=== PATIENT | female | born 1990 | race Caucasian/White ===

== ENCOUNTER → 2018-12-23 23:50 | Observation (INO) ==
[2018-12-23 21:49] LABS: Basophils % 0.2 %; Eosinophils % 0.4 %; Hematocrit 31.2 % (35.3-44.9); Hemoglobin 10.4 g/dL (11.5-15.4); Lymphocytes # 1.8 K/mcL (0.6-4.6); Mean Corpuscular HGB Conc 33.3 g/dL (31.6-35.5); Mean Corpuscular Hemoglobin 28.3 pg (28.0-33.3); Mean Platelet Volume 11.4 fL (9.4-12.4); Monocytes # 0.6 K/mcL (0.0-1.3); Monocytes % 6.1 %; Neutrophils # 7.1 K/mcL (1.6-8.9); Platelet Count 238 K/mcL (140-400); Red Blood Count 3.67 M/mcL (3.82-4.97); Red Cell Distribution Width 14.5 % (11.5-14.5); Segmented Neutrophils % 73.3 %; White Blood Count 9.7 K/mcL (4.3-11.1)
[2018-12-23 21:54] LABS: Bilirubin,Urine Negative (Negative); Blood,Urine Negative (Negative); Clarity,Urine Cloudy (Clear); Color,Urine Dark Yellow (Yellow); Glucose,Urine (UA) Normal (Normal); Ketones,Urine Trace mg/dL (Negative); Leukocyte Esterase,Urine Negative (Negative); Nitrite,Urine Negative (Negative); Protein,Urine 30 mg/dL (Neg-Trace); Specific Gravity,Urine > 1.030 (1.010-1.025); Urobilinogen,Urine Normal (Normal)
[2018-12-23 21:55] LABS: Bacteria,Urine Many per hpf (None-Few); Squamous Epithelial Cell,Urine Many per lpf (None-Few); WBC,Urine 50-100 per hpf (0-3)
[2018-12-23 21:56] LABS: Protein/Creatinine Ratio,Urine 0.19 mg/mg (0.00-0.20)
[2018-12-23 21:57] LABS: Amphetamine Screen,Urine Negative ng/mL (Cutoff=1000); Barbiturate Screen,Urine Negative ng/mL (Cutoff=200); Benzodiazepines Screen,Urine Negative ng/mL (Cutoff=200); Cannabinoid Screen,Urine Negative ng/mL (Cutoff = 50); Cocaine Screen,Urine Negative ng/mL (Cutoff= 300); Opiate Screen,Urine Negative ng/mL (Cutoff=300); Phencyclidine Screen,Urine Negative ng/mL (Cutoff=25)
[2018-12-23 22:06] LABS: Alanine Aminotransferase 8 Units/L (7-52); Aspartate Amino Transferase 13 Units/L (13-39); BUN/Creatinine Ratio 18 (6-26); Blood Urea Nitrogen 13 mg/dL (6-20); Lactate Dehydrogenase 124 Units/L (140-271); Uric Acid 4.4 mg/dL (2.3-7.6); eGFR For African Americans > 60 (> 60); eGFR For Non-African Americans > 60 (> 60)
[2018-12-23 22:20] LABS: Calcium Oxalate Crystals,Urine Present; RBC,Urine 0-3 per hpf (0-3)
--- NOTE | 2018-12-23 23:23 | OB/GYN Progress Note ---
Date of Encounter: 12/23/18 Time of Encounter: 23:19 - Assessment and Plan (1) 38 weeks gestation of Current Visit: Yes Status: Acute (2) Elevated blood pressure affecting in third trimester, antepartum Current Visit: Yes Status: Acute Patient with 1 only elevated blood pressure initial pressure on admission, all other pressures normotensive. PIH labs negative. Discharged home with labor and PIH precautions. Patient verbalizes understanding and in agreement with plan Subjective - Subjective Interval history: 36+ weeks gestation presents to triage for PIH eval. Patient was seen by Dr. Byers in the office today, and had elevated blood pressure and positive protein in urine. Patient ports good movement, denies contractions vaginal bleeding or leaking of fluid. Denies headache or visual changes Antepartum ROS: movement normal, no loss of fluid, no vaginal bleeding, no contractions Objective - Vital Signs Vital Signs: Intake and Output 12/23/18 12/23/18 12/23/18 07:59 15:59 23:59 Other: Weight 124.466 kg Patient Weight 12/23/18 23:59 Weight 124.466 kg - Exam FHR: auscultation normal FHR comments: Baseline 125 Abdomen: Present: soft, gravid - Labs Labs: Abnormal lab results RBC 3.67 M/mcL (3.82-4.97) L 12/23/18 21:20 Hgb 10.4 g/dL (11.5-15.4) L 12/23/18 21:20 Hct 31.2 % (35.3-44.9) L 12/23/18 21:20 Lactate Dehydrogenase 124 Units/L (140-271) L 12/23/18 21:20 Urine Clarity Cloudy (Clear) A 12/23/18 21:20 Ur Specific [place] > 1.030 (1.010-1.025) H 12/23/18 21:20 Urine Protein 30 mg/dL (Neg-Trace) H 12/23/18 21:20 Urine Ketones Trace mg/dL (Negative) H 12/23/18 21:20 Urine Microscopic WBC 50-100 per hpf (0-3) H 12/23/18 21:20 Ur Squamous Epith Cells Many per lpf (None-Few) H 12/23/18 21:20 Urine Bacteria Many per hpf (None-Few) H 12/23/18 21:20 Ur Culture Indicated? YES (NO) A 12/23/18 21:20 Urine Total Protein 42 mg/dL (1-14) H 12/23/18 21:20
== END | disposition home or self-care (01) ==
LOC: 1NENULAB
PROVIDERS: ADMIT Advanced Practice Midwife; ATTEND Advanced Practice Midwife

== ENCOUNTER 2018-12-28 06:00 | Inpatient (IN) ==
[2018-12-31] MEDS ORDERED: Naloxone 0.4 MG/ML INJ IVP PRN ×2 (06:34→07:57)
[2018-12-31] MEDS ORDERED: Famotidine 20 MG/2 ML VIAL IVP PRN (06:34)
[2018-12-31] MEDS ORDERED: *HR* Nalbuphine 10 MG/ML AMPUL IVP PRN (06:34)
[2018-12-31] MEDS ORDERED: Metoclopramide 10 MG/2 ML VIAL IVP PRN (06:34)
[2018-12-31] MEDS ORDERED: Ringers Solution, Lactated 1,000 ML IVC SCH (06:45)
[2018-12-31 06:50] LABS: Basophils % 0.2 %; Eosinophils # 0.1 K/mcL (0.0-0.6); Hematocrit 32.1 % (35.3-44.9); Hemoglobin 10.5 g/dL (11.5-15.4); Immature Granulocytes % 1.3 % (0-4); Lymphocytes # 2.1 K/mcL (0.6-4.6); Mean Corpuscular HGB Conc 32.7 g/dL (31.6-35.5); Mean Corpuscular Hemoglobin 27.9 pg (28.0-33.3); Mean Corpuscular Volume 85.1 fL (83.0-100.0); Mean Platelet Volume 11.3 fL (9.4-12.4); Monocytes # 0.6 K/mcL (0.0-1.3); Monocytes % 5.4 %; Neutrophils # 7.2 K/mcL (1.6-8.9); Platelet Count 256 K/mcL (140-400); Red Blood Count 3.77 M/mcL (3.82-4.97); Red Cell Distribution Width 14.8 % (11.5-14.5); Segmented Neutrophils % 71.1 %; White Blood Count 10.2 K/mcL (4.3-11.1)
[2018-12-31 07:08] LABS: Amphetamine Screen,Urine Negative ng/mL (Cutoff=1000); Barbiturate Screen,Urine Negative ng/mL (Cutoff=200)
[2018-12-31 07:09] LABS: Benzodiazepines Screen,Urine Negative ng/mL (Cutoff=300); Cannabinoid Screen,Urine Negative ng/mL (Cutoff = 50); Cocaine Screen,Urine Negative ng/mL (Cutoff= 300); Opiate Screen,Urine Negative ng/mL (Cutoff=300); Phencyclidine Screen,Urine Negative ng/mL (Cutoff=25)
[2018-12-31] MEDS: miSOPROStol 25 MCG TABLET PO SCH ×2 (07:23→12:03)
[2018-12-31] MEDS ORDERED: Ondansetron 4 MG/2 ML VIAL IVP PRN (07:57)
[2018-12-31] MEDS ORDERED: EPHEDrine 50 MG/ML VIAL IVP PRN (07:57)
[2018-12-31] MEDS ORDERED: *HR* FentaNYL (PF) 100 MCG/2 ML VIAL EP ONE (07:57)
[2018-12-31] MEDS ORDERED: Ropivacaine/PF 0.2% 20 ML VIAL EP ONE (07:57)
--- NOTE | 2018-12-31 08:05 | Anesthesia Evaluation PreOp ---
Date of Encounter: 12/31/18 - Past History Alcohol Use: none Drug use: none Medications and Allergies One Tablet 12/23/18 [History] Allergy/AdvReac Type Severity Reaction Status Date / Time No Known Allergies Allergy Verified 12/31/18 06:44 Anesthesia Results - Labs 12/31/18 06:36
--- NOTE | 2018-12-31 08:27 | Anesthesia Evaluation PreOp ---
Date of Encounter: 12/31/18 Time of Encounter: 08:00 - Past History Planned Operation: DAVID Cardiac History: Denies any Significant Hx Pulmonary History: Denies Any Significant HX MAT[employer]X [employer]RIER TENDER History: Denies Any Significant HX Other Medical History: Denies Any Significant HX Anesthesia History: No Prior Anesthetic Complications, Past Anesthesia (Bilateral ankle surgery) : Yes Alcohol Use: none Drug use: none Medications and Allergies One Tablet 12/23/18 [History] Allergy/AdvReac Type Severity Reaction Status Date / Time No Known Allergies Allergy Verified 12/31/18 06:44 - Meds/Allergy Pre-op Review Medications Reviewed: Yes Allergies Reviewed: Yes Beta Blockers on Current Med List: No Anesthesia Results - Labs 12/31/18 06:36 Anesthesia Exam BP 137/68 P 79 R 16 T 97.5 FHT 120s Height: 5'4" Weight: 124.3kg NPO (# of Hours): 6 Pain Scale: 2 Pain Scale Used: Numeric (1 - 10) - HEENT Pupil (Motor): Pupils equal Mallampati: II Teeth: Normal Oral Opening: Greater than 3 - MATRIX DRIER TENDER LOC: Oriented [employer]X [employer] TENDER Motor: Normal RUE, Normal LUE, Normal RLE, Normal LLE, Normal Face [employer]X DRIER TENDER Sensory: Normal: RUE, LUE, RLE, LLE, Face - Cardiac Rhythm: Regular Murmur: None JVD: No Carotid Bruit: No - Pulmonary Breath Sounds: bilateral Clear Respiratory Effort: Symmetrical Anesthesia Assess/Plan ASA Score: 2 Level of consciousness: Cooperative, Oriented, Tranquil Anesthetic Plan: Epidural Autologous Blood: No Monitoring Plan: Standard Monitors Recovery Plan: Other
[2018-12-31 09:57] LABS: Alanine Aminotransferase 9 Units/L (7-52); Aspartate Amino Transferase 12 Units/L (13-39); BUN/Creatinine Ratio 15 (6-26); Blood Urea Nitrogen 8 mg/dL (6-20); Lactate Dehydrogenase 117 Units/L (140-271); eGFR For African Americans > 60 (> 60); eGFR For Non-African Americans > 60 (> 60)
[2018-12-31 10:17] LABS: Protein/Creatinine Ratio,Urine 0.18 mg/mg (0.00-0.20)
--- NOTE | 2018-12-31 13:19 | OB/GYN History & Physical ---
Date of Encounter: 12/31/18 Time of Encounter: 13:17 Assessment and Plan (1) 39 weeks gestation of Current visit: Yes Status: Acute Will admit to labor and deliver and begin 2 stage induction with Cytotec followed by intracervical li if needed. 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 She has no preeclampsia sx's, +GFM, no vb or lof History of Present Illness Chief complaint: Here for Induction at 39 weeks gestation, historof elevated blood pressures HPI: Ms. Humphries is a 28 year old female 1 para 0 female at 39 weeks 2 days gestation presents to labor and delivery for induction of labor. This has been complicated by recent elevations in blood pressure with multiple admissions to labor and delivery for rule out preeclampsia. Upon arrival she reports irregular contractions no bleeding or leakage fluid Past Med Surg Social Fam HX - Past Medical History Source: patient, old records reviewed Medical history: no medical history Psychiatric history: no psych history - Past Surgical History Surgical History: other Additional surgical history: surgery on broken bone, both ankles, wrist. - Social History Smoking Status: Never smoker Alcohol use: none Drug use: none - Family History Mother Living Status: Still Living Hx Family Cardiac Disorders: No Hx Family Respiratory Disorders: No Hx Family Cancer: No Hx Family GI Disorders: No Hx Family Genitourinary Disorders: No Hx Family Endocrine Disorder: No Hx Family Musculoskeletal Disorders: No Hx Family Neuromuscular Disorders: No Hx Family Neurologic Disorders: No Hx Family HEENT Disorders: No Hx Family Autoimmune Disorders: No Hx Family Reproductive Disorders: No Hx Family Psychosocial Disorders: No Hx Family Medical Disorders: No Obstetrical History - Pregnancies : 1 Medications and Allergies One Tablet 12/23/18 [History] Allergy/AdvReac Type Severity Reaction Status Date / Time No Known Allergies Allergy Verified 12/31/18 06:44 Exam - Constitutional Constitutional: well developed - HEENT HEENT: EOMI, PERRL - Neck Neck exam: full ROM - Lungs Respiratory exam: CTAB - Cardiovascular Cardiovascular exam: RRR - Abdomen Abdomen: Present: gravid - Extremities Extremities exam: full ROM Deep Tendon Reflex Grade: 2+ Normal - Cervix Dilation: 1 Effacement: 60 Station: -2 Results Result Diagrams: 12/31/18 06:36 12/31/18 09:17 Abnormal lab results RBC 3.77 M/mcL (3.82-4.97) L 12/31/18 06:36 Hgb 10.5 g/dL (11.5-15.4) L 12/31/18 06:36 Hct 32.1 % (35.3-44.9) L 12/31/18 06:36 MCH 27.9 pg (28.0-33.3) L 12/31/18 06:36 RDW 14.8 % (11.5-14.5) H 12/31/18 06:36 Creatinine 0.52 mg/dL (0.60-1.20) L 12/31/18 09:17 AST 12 Units/L (13-39) L 12/31/18 09:17 Lactate Dehydrogenase 117 Units/L (140-271) L 12/31/18 09:17 Urine Total Protein 23 mg/dL (1-14) H 12/31/18 06:30 All other labs normal. - VTE Reasons for not Prescribing Prophylaxis: Treatment not Indicated - Low risk for VTE
--- NOTE | 2018-12-31 13:32 | Event Note ---
Date of Encounter: 12/31/18 Time of Encounter: 13:26 Pt is getting more uncomfortable there is still just cramping. She denies bleeding or leakage of fluid. Attempt was made at Ghosh catheter placement intracervically without success. Attempted with direct digital placement as well as direct visualization without success. Patient just received her Cytotec second dose an hour ago with continued to Cytotec this point. Patient is no other questions. Nonstress test is reactive. Her blood pressures are good.
--- NOTE | 2018-12-31 17:00 | OB Labor Progress Note ---
Date of Encounter: 12/31/18 Time of Encounter: 16:58 Labor Progress Note - Subjective Subjective: Pt reports contractions are getting a little more uncomfortable. - Cervix Cervix: ft-1cm - Heart Tones Heart Tones: Category I - [place]: Q 3 minutes - Interventions Interventions: Ghosh catheter placed through cervix using sterile technique. Balloon inflated with 40ml sterile water. Pt tolerated well. - Plan Plan: Continue to monitor. Consider pitocin augmentation at this time. Epidural when requested. Anticipate .
[2018-12-31] MEDS ORDERED: Oxytocin 20 units/ LR 1000 mL 20 UNIT/1,000 ML BAG IVC SCH (18:15)
[2018-12-31] MEDS ORDERED: *HR* FentaNYL (PF) 100 MCG/2 ML VIAL ONE (18:41)
--- NOTE | 2018-12-31 22:35 | OB Labor Progress Note ---
Date of Encounter: 12/31/18 Time of Encounter: 22:33 Labor Progress Note - Subjective Subjective: UC's getting stronger - Cervix Cervix: /-2 - Heart Tones Heart Tones: RNST - [place]: UC's q 4-5 min - Interventions Interventions: AROM clear - Plan Plan: IUPC placed, expect .
[2018-12-31] MEDS: Epidural Premix (fent/bupiv) 110 ML EP SCH (23:12)
--- NOTE | 2018-12-31 23:21 | Anesthesia Procedures ---
Date of Encounter: 12/31/18 Time of Encounter: 22:45 Procedures: Anesthesia - Epidural/Spinal Patient ID/Chart reviewed: Yes Patient examined: Yes OB Eval: Gestational age: 39 OB Eval: : 1 OB Eval: Hx Para: 0 OB Eval: Dilated at (cm): 5 OB Eval: Contractions: Non-stressed pattern Consent Obtained: Yes Supplemental Oxygen: None/Room Air Site Prep: Aseptic Technique, Sterile prep and drape, Povidone-Iodine 1% Patient position: upright Local Anesthetic: Lidocaine 1% Amount of Local Anesthetic used: 3 Touhy Needle Gauge: 18 Touhy Needle Depth (cm): 7 Catheter Depth at Skin (cm): 14 Test Dose (1.5% Lido + Epi): Volume given (mls): 3 Test Dose Result: Negative Loading Dose: Fentanyl (mcg): 100 Loading Dose: Other: Ropivicaine 0.2% 5ml, 3ml Normal saline Loading Dose Administered: Thru Catheter Infusion Med: 0.125% Bupivacaine w/ 2 mcg/ml Fentanyl Infusion Rate (mls/hr): [address]: Tegaderm, Tape Interspace Used: L3-L4 Loss of Resistance (SUSI): Yes Blood: No CSF: No Paresthesia: No Procedure: DAVID placed 1st pass in upright position. SUSI achieved with Normal Saline. Catheter threaded with ease to 14cm at skin. Test dose negative. Pt stated comfort following administration of bolus. VSS throughout. Vitals + FHT's: 2245 BP 125/85 P 102 R 18 2310 BP 128/72 P 112 R 16
--- NOTE | 2019-01-01 04:07 | OB Labor Progress Note ---
Date of Encounter: 01/01/19 Time of Encounter: 04:04 Labor Progress Note - Subjective Subjective: Doing well, comfortable with epidural - Cervix Cervix: 6-7/95/-1 - Heart Tones Heart Tones: RNST, occ late decls noted, excellent variablility - Plan Plan: Watch FHT's closely, expect
[2019-01-01] MEDS ORDERED: Ropivacaine/PF 0.2% 20 ML VIAL ONE (04:57)
--- NOTE | 2019-01-01 05:26 | Anesthesia Progress Note ---
Date of Encounter: 01/01/19 Time of Encounter: 05:00 Anesthesia Note - Note Note: 01/01/19 05:25 Called to patient bedside with complaints of breakthrough labor pain. Ropivicaine 0.2% 10ml bolus administered. VSS.
[2019-01-01] MEDS: Epidural Premix (fent/bupiv) 110 ML EP SCH (05:52)
[2019-01-01] MEDS ORDERED: Acetaminophen 325 MG TABLET PO PRN (12:04)
[2019-01-01] MEDS ORDERED: Lidocaine/EPI 1:200k 1% PF 10 ML VIAL ONE (17:29)
--- NOTE | 2019-01-01 18:01 | OB Labor Progress Note ---
Date of Encounter: 01/01/19 Time of Encounter: 17:53 Labor Progress Note - Subjective Subjective: Patient has been complete for 11 hours has been pushing on and off the entire time. We attempted position changes to also try and help bring the baby down. Patient has become completely exhausted and her pushing effort was ineffective. We did offer her a attempted vacuum to see if we could help pull the baby down. We did give consent for this I attempted twice with the vacuum the first time popped off with the mighty Vac I converted over to the [place] applied one time pulled one time there was no descent of the head I released it and took it off. I informed the patient I was not comfortable proceeding on attempting to pull the baby out and recommended we proceed on with section. Patient was okay with it at this time. - Cervix Cervix: Complete/100%/+2 caput noted - Heart Tones Heart Tones: heart tones 140s reactive - [place]: Contractions every 2 minutes - Interventions Interventions: Pitocin has been turned off consent for has been obtained anesthesia is notified we will proceed on with a primary low transverse section
[2019-01-01] MEDS ORDERED: Chloroprocaine/PF 20 ML VIAL INFILT ONE ×2 (18:03→19:10)
[2019-01-01] MEDS ORDERED: *HR* Oxytocin 10 UNIT/ML VIAL IM ONE (18:04)
[2019-01-01] MEDS ORDERED: CeFAZolin Premix DUPLEX 2,000 MG/50 ML BAG IVPB ONE (18:05)
--- NOTE | 2019-01-01 18:05 | OB/GYN Procedure Note ---
Section - Date of procedure: 01/01/19 Preop diagnosis: other (Intrauterine at 39-3/7 weeks, arrest of descent, cephalopelvic disproportion) Post-op diagnosis: same (with POP) Procedure: primary low transverse Surgeon: Yassine Fong Quantitated Blood Loss: 1,500 Was there an assistant to the director present: Yes Nail Specialist: Wilder Hercules ([id number]) Addiction Social Worker: Josh Mcadams Anesthesia Type: Epidural section complications: none, other (intraoperative uterine atony with laceration into cervix) Disposition: L&D Recovery Room Specimens: Placenta - Infant (s) Infant A Infant Delivery Date: 01/01/19 Delivery Time: 18:41 Presentation: vertex Position: LOP Route of delivery: other ( section) Gender: Female Viability: Viable Pounds: 7 Ounces: 13 Gram Weight: 3.53 kg at 1 minute: 8 at 5 minutes: 9 Shoulder Dystocia: not encountered Specimens collected: cord blood Placenta: spontaneous Cord: 3 umbilical vessels - Narrative Narrative: Patient is a 20-year-old 1 para 0 at 39-3/7 weeks who presented to labor and delivery for an induction labor second term with history of el evated blood pressures. Patient was put in on the sixth were her induction was initiated. Patient progressed slowly but appropriately. This morning at approximately 7 AM the patient was complete patient's was allowed to push but was not making any progress they felt because of the epidural and allowed to labor down patient continued to have no sensation the entire day after approximately 11 hours of being complete patient had no maternal effort with her patient was completely exhausted. We did attempt a vacuum extraction we applied a vacuum twice with 1 pop off we had no descent of the head and this was abandoned and section was called. Procedure: Patient was taken the operating room where epidural anesthesia was found be adequate. She was placed in the dorsal supine position with leftward tilt and prepped and draped in usual fashion. Timeout was obtained. A Pfannenstiel incision was then made carried down through the underlying tissue until the fascia was identified. The fascia was nicked in the midline extended laterally with Severino scissors. The superior and inferior edges of the fascia were grasped and dissected off the rectus muscles and rectus muscles were in the midline. Parietal peritoneum was then identified tented up and entered sharply. This was extended superiorly and inferiorly with Metzenbaum scissors. The bladder blade was inserted noted this time the uterus seemed to be displaced to the left where we had to place the bladder blade more on the patient's right thigh. The vesicouterine peritoneum was then tented up and entered sharply extended laterally and bladder flap was created digitally. The lower uterine segment was then incised and the scalpel and the incision was extended laterally with bandage scissors. It was Noted immediately incision was at the level of the 's shoulders. I had difficulty getting the head disengaged I was finally able to disengage the head identifying the in occiput posterior presentation the infant was then brought up through the incision delivered cord was clamped and cut infant was handed off to waiting pediatric team. Cord blood was collected. Placenta was delivered spontaneously. Uterus was exterior since this time was noted immediately patient had a extension on the right side down into the cervix. It was noted that the extension extended all the way to the end of the cervix which what appeared to be in the vaginal vault. Using 0 Vicryl were able to then reapproximate that cervical laceration and closed in a running locking stitch until we were at the level of the original penicillin incision. This incision was then closed using a 0 Vicryl in a running locking stitch by 2 layer closure. We did have good hemostasis I did close the peritoneum with a 2-0 Vicryl closing the underlying incision. The uterus was returned to the abdomen and gutters were cleaned of all clots and debris no active bleeding was noted. We did have to close the parietal peritoneum with a 2-0 Vicryl in a running stitch due to the fact patient omentum Protruding through the incision once this was closed we then closed the fascia with a #1 stratafix in a running stitch and then the subcutaneous tissue was closed using 0 chromic in a running stitch and the skin was closed using a 4-0 Vicryl in a subcuticular manner. All needles and sponge counts were correct 3 she did receive preoperative antibiotics. Patient will be continued on Keflex and Zithromax for 5 days daily.
[2019-01-01] MEDS ORDERED: Ondansetron 4 MG/2 ML VIAL ONE (18:30)
[2019-01-01] MEDS ORDERED: Ringers Solution, Lactated 1,000 ML ONE ×2 (18:32→21:56)
[2019-01-01] MEDS ORDERED: *HR* Morphine Sulfate/PF 10 MG/10 ML AMPUL ONE (18:33)
[2019-01-01] MEDS ORDERED: Azithromycin 500 MG in 0.9 % Sodium Chloride 250 ML IVPB ONE ×2 (18:33→19:00)
[2019-01-01] MEDS ORDERED: Acetaminophen IV 1,000 MG/100 ML INFUS..BTL IVPB ONE (19:59)
[2019-01-01] MEDS ORDERED: *HR* HYDROmorphone (PF) 1 MG/ML SYRINGE IVP PRN (19:59)
[2019-01-01] MEDS ORDERED: *HR* OxyCODONE/APAP 10/325 TABLET PO PRN (20:52)
[2019-01-01] MEDS ORDERED: Sennosides 8.6 MG TABLET PO PRN (20:52)
[2019-01-01] MEDS ORDERED: Ondansetron 4 MG/2 ML VIAL IVP PRN (20:52)
[2019-01-01] MEDS ORDERED: Rho Immune Globulin 1,500 UNIT SYRINGE IM ONE (20:52)
[2019-01-01] MEDS ORDERED: Metoclopramide 10 MG/2 ML VIAL IVP PRN (20:52)
[2019-01-01] MEDS ORDERED: 0.9 % Sodium Chloride 1,000 ML IVC SCH (20:52)
[2019-01-01] MEDS ORDERED: Oxytocin 20 units/ LR 1000 mL 20 UNIT/1,000 ML BAG IVC SCH (20:52)
[2019-01-01] MEDS ORDERED: Simethicone 80 MG TAB.CHEW PO PRN (20:52)
[2019-01-01 21:43] LABS: Hematocrit 29.2 % (35.3-44.9); Hemoglobin 9.5 g/dL (11.5-15.4); Mean Corpuscular HGB Conc 32.5 g/dL (31.6-35.5); Mean Corpuscular Hemoglobin 28.1 pg (28.0-33.3); Mean Corpuscular Volume 86.4 fL (83.0-100.0); Mean Platelet Volume 11.7 fL (9.4-12.4); Platelet Count 207 K/mcL (140-400); Red Blood Count 3.38 M/mcL (3.82-4.97); Red Cell Distribution Width 15.2 % (11.5-14.5)
[2019-01-01 21:44] LABS: White Blood Count 21.1 K/mcL (4.3-11.1)
[2019-01-01] MEDS ORDERED: Oxytocin 20 units/ LR 1000 mL 20 UNIT/1,000 ML BAG IVC ONE (21:56)
--- NOTE | 2019-01-01 21:58 | Anesthesia Evaluation Post Op ---
Date of Encounter: 01/01/19 Time of Encounter: 21:58 - Lungs Lungs: Clear Ascult./Percussion - Airway Airway: Non-obstructed - Cardiovascular Regular Rate - Mental Status Mental Status: Alert & Oriented, Answers Appropriately - Pain Pain Scale: 4 - Nausea Vomiting Nausea Vomiting: Not Present - Hydration Hydration: Ice chips, Ghosh catheter - Discharge PostOp Status: Transfer Patient to floor
[2019-01-01] MEDS: cephALEXin 500 MG CAPSULE PO SCH (22:24)
[2019-01-01] MEDS: *HR* OxyCODONE/APAP 5/325 TABLET PO PRN (22:24)
[2019-01-01] MEDS ORDERED: *HR* Nalbuphine 10 MG/ML AMPUL IV PRN (23:20)
[2019-01-02] MEDS: *HR* OxyCODONE/APAP 5/325 TABLET PO PRN ×4 (05:57→23:50)
[2019-01-02] MEDS: Ibuprofen 600 MG TABLET PO PRN ×2 (05:58→20:34)
[2019-01-02 08:01] LABS: Basophils % 0.2 %; Eosinophils # 0.1 K/mcL (0.0-0.6); Eosinophils % 0.3 %; Hematocrit 25.8 % (35.3-44.9); Hemoglobin 8.4 g/dL (11.5-15.4); Immature Granulocytes % 0.6 % (0-4); Lymphocytes # 1.6 K/mcL (0.6-4.6); Lymphocytes % 8.8 %; Mean Corpuscular HGB Conc 32.6 g/dL (31.6-35.5); Mean Corpuscular Hemoglobin 28.4 pg (28.0-33.3); Mean Corpuscular Volume 87.2 fL (83.0-100.0); Mean Platelet Volume 11.2 fL (9.4-12.4); Monocytes # 0.9 K/mcL (0.0-1.3); Monocytes % 4.8 %; Neutrophils # 15.4 K/mcL (1.6-8.9); Platelet Count 202 K/mcL (140-400); Red Blood Count 2.96 M/mcL (3.82-4.97); Red Cell Distribution Width 15.4 % (11.5-14.5); Segmented Neutrophils % 85.3 %
[2019-01-02] MEDS: cephALEXin 500 MG CAPSULE PO SCH ×2 (09:25→20:34)
[2019-01-02] MEDS: Prenatal Vit/FA 1 EACH TABLET PO SCH (09:25)
[2019-01-02] MEDS: Azithromycin 250 MG TABLET PO SCH (09:25)
--- NOTE | 2019-01-02 10:15 | OB/GYN Progress Note ---
Date of Encounter: 01/02/19 Time of Encounter: 10:13 - Assessment and Plan (1) 39 weeks gestation of Current Visit: Yes Status: Acute Doing well POD # 1- Cont. pp care. 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 She has no preeclampsia sx's, +GFM, no vb or lof Subjective - Subjective Principal diagnosis: s/p c-sec Interval history: Doing well without c/o. Good pain control. Regular diet without n/v. Ambutlating. Patient reports: appetite normal : doing well Objective - Vital Signs Latest vital signs: Vital Signs Temp Pulse Resp BP Pulse Ox 01/02/19 09:25 18 01/02/19 06:00 98.7 F 98 16 120/65 97 01/02/19 01:30 98.0 F 86 15 99/61 96 01/01/19 23:30 98.4 F 79 16 102/58 97 01/01/19 23:00 98.4 F 75 12 98/57 95 01/01/19 22:30 98.6 F 90 16 117/64 94 01/01/19 22:00 98.5 F 76 16 110/61 96 Intake and Output 01/01/19 01/02/19 01/02/19 23:59 07:59 15:59 Output Total 800 / 800 1500 / 1500 Balance -800 / -800 -1500 / -1500 Output: Catheter 800 / 800 1500 / 1500 - Exam Lungs: bilateral: normal Chest: Normal S1, Normal S2 Extremities: Present: normal Abdomen: Present: soft Incision: Present: intact, dressed - Labs Labs: Laboratory Results - last 24 hr 01/01/19 01/02/19 20:50 07:39 WBC 21.1 H D 18.0 H RBC 3.38 L 2.96 L Hgb 9.5 L 8.4 L Hct 29.2 L 25.8 L MCV 86.4 87.2 MCH 28.1 28.4 MCHC 32.5 32.6 RDW 15.2 H 15.4 H Plt Count 207 202 MPV 11.7 11.2 Immature Gran % 0.6 Seg Neutrophils % 85.3 Lymphocytes % 8.8 Monocytes % 4.8 Eosinophils % 0.3 Basophils % 0.2 Neutrophils # 15.4 H Lymphocytes # 1.6 Monocytes # 0.9 Eosinophils # 0.1 Basophils # 0.0
[2019-01-02] MEDS ORDERED: Rho Immune Globulin 1,500 UNIT SYRINGE IM ONE (17:30)
[2019-01-03] MEDS: Ibuprofen 600 MG TABLET PO PRN (02:49)
[2019-01-03] MEDS: *HR* OxyCODONE/APAP 5/325 TABLET PO PRN (04:38)
[2019-01-03] MEDS: Azithromycin 250 MG TABLET PO SCH (08:48)
[2019-01-03] MEDS: cephALEXin 500 MG CAPSULE PO SCH (08:48)
[2019-01-03] MEDS: Prenatal Vit/FA 1 EACH TABLET PO SCH (08:48)
[2019-01-03 10:38] VITALS: BP 127/84
--- NOTE | 2019-01-03 11:32 | Discharge Summary ---
Date of Encounter: 01/03/19 Time of Encounter: 11:29 - Discharge Diagnosis (1) Status post delivery Priority: Primary Status: Acute Comments: Patient meeting day one milestones. Pain well-controlled with prescribed medications.OARRS report reviewed Voiding without difficulty, tolerating regular diet, bleeding light. No bowel movement yet. Anticipate discharge today (2) Breast feeding status of mother Priority: Secondary Status: Acute Comments: support as needed. Patient states she has a breast pump at home. (3) Acute blood loss anemia Priority: Secondary Status: Acute Comments: Continue iron twice daily at discharge. Patient is asymptomatic with a hemoglobin of 8.4 - Discharge Medications Prescriptions: New Ferrous Sulfate 325 mg PO 0800 #30 tablet Ibuprofen [Motrin] 600 mg PO Q6HR PRN #60 tablet PRN Reason: Cramping OxyCODONE/APAP 5/325 [Percocet 5/325 MG] 1 each PO Q6H PRN 7 Days #28 tablet PRN Reason: Moderate pain 4-6 Docusate [Colace] 100 mg PO BID #60 capsule Simethicone [Gas-X] 80 mg PO TID PRN tab.chew PRN Reason: Dyspepsia Continued One Tablet Home Medications: One Tablet 12/23/18 [History] Docusate [Colace] 100 mg PO BID #60 capsule 01/03/19 [Rx] Ferrous Sulfate 325 mg PO 0800 #30 tablet 01/03/19 [Rx] Ibuprofen [Motrin] 600 mg PO Q6HR PRN #60 tablet 01/03/19 [Rx] OxyCODONE/APAP 5/325 [Percocet 5/325 MG] 1 each PO Q6H PRN 7 Days #28 tablet 01/03/19 [Rx] Simethicone [Gas-X] 80 mg PO TID PRN tab.chew 01/03/19 [Rx] Allergies/Adverse Reactions: Allergy/AdvReac Type Severity Reaction Status Date / Time No Known Allergies Allergy Verified 12/31/18 06:44 Data Procedures and tests throughout hospitalization: Laboratory Tests 12/31/18 12/31/18 12/31/18 06:30 06:30 06:36 WBC 10.2 RBC 3.77 L Hgb 10.5 L Hct 32.1 L MCV 85.1 MCH 27.9 L MCHC 32.7 RDW 14.8 H Plt Count 256 MPV 11.3 Immature Gran % 1.3 Seg Neutrophils % 71.1 Lymphocytes % 21.0 Monocytes % 5.4 Eosinophils % 1.0 Basophils % 0.2 Neutrophils # 7.2 Lymphocytes # 2.1 Monocytes # 0.6 Eosinophils # 0.1 Basophils # 0.0 BUN Creatinine Est GFR ( Amer) Est GFR (Non-Af Amer) BUN/Creatinine Ratio Uric Acid AST ALT Lactate Dehydrogenase Urine Creatinine 125 Protein/Creatinin Ratio 0.18 Urine Total Protein 23 H Urine Opiates Screen Negative Ur Buprenorphine Scrn Negative Ur Barbiturates Screen Negative Ur Phencyclidine Scrn Negative Ur Amphetamines Screen Negative U Benzodiazepines Scrn Negative Urine Cocaine Screen Negative U Marijuana (THC) Screen Negative Ur Drug Screen Interp See Below Screen Baby's Blood Type Mother's Blood Type Rhogam Indicated Rhogam Req for Mother 12/31/18 01/01/19 01/01/19 09:17 20:50 20:50 WBC 21.1 H D RBC 3.38 L Hgb 9.5 L Hct 29.2 L MCV 86.4 MCH 28.1 MCHC 32.5 RDW 15.2 H Plt Count 207 MPV 11.7 Immature Gran % Seg Neutrophils % Lymphocytes % Monocytes % Eosinophils % Basophils % Neutrophils # Lymphocytes # Monocytes # Eosinophils # Basophils # BUN 8 Creatinine 0.52 L Est GFR ( Amer) > 60 Est GFR (Non-Af Amer) > 60 BUN/Creatinine Ratio 15 Uric Acid 4.0 AST 12 L ALT 9 Lactate Dehydrogenase 117 L Urine Creatinine Protein/Creatinin Ratio Urine Total Protein Urine Opiates Screen Ur Buprenorphine Scrn Ur Barbiturates Screen Ur Phencyclidine Scrn Ur Amphetamines Screen U Benzodiazepines Scrn Urine Cocaine Screen U Marijuana (THC) Screen Ur Drug Screen Interp Screen NEGATIVE Baby's Blood Type A RH POSITIVE Mother's Blood Type A RH NEGATIVE Rhogam Indicated YES Rhogam Req for Mother 1 01/02/19 07:39 WBC 18.0 H RBC 2.96 L Hgb 8.4 L Hct 25.8 L MCV 87.2 MCH 28.4 MCHC 32.6 RDW 15.4 H Plt Count 202 MPV 11.2 Immature Gran % 0.6 Seg Neutrophils % 85.3 Lymphocytes % 8.8 Monocytes % 4.8 Eosinophils % 0.3 Basophils % 0.2 Neutrophils # 15.4 H Lymphocytes # 1.6 Monocytes # 0.9 Eosinophils # 0.1 Basophils # 0.0 BUN Creatinine Est GFR ( Amer) Est GFR (Non-Af Amer) BUN/Creatinine Ratio Uric Acid AST ALT Lactate Dehydrogenase Urine Creatinine Protein/Creatinin Ratio Urine Total Protein Urine Opiates Screen Ur Buprenorphine Scrn Ur Barbiturates Screen Ur Phencyclidine Scrn Ur Amphetamines Screen U Benzodiazepines Scrn Urine Cocaine Screen U Marijuana (THC) Screen Ur Drug Screen Interp Screen Baby's Blood Type Mother's Blood Type Rhogam Indicated Rhogam Req for Mother Labs on day of discharge: Labs from last 24 hours 01/01/19 20:50 Screen NEGATIVE Baby's Blood Type A RH POSITIVE Mother's Blood Type A RH NEGATIVE Rhogam Indicated YES Rhogam Req for Mother 1 Date of admission: 12/31/18 06:11 Primary care physician: PCP NONE Discharging clinician: Merari Galarza Anticipated date of discharge: 01/03/19 - Patient Status Disposition: Home, Self-Care Condition: Good Functional capacity at discharge: independent ambulation Overall status at discharge: patient is progressing back to baseline - Discharge Instructions Follow Up With: NONE,PCP [Primary Care Provider] - Yassine Fong DO [Partnered Physician] - - Diet and Activity Activity: resume usual activities as tolerated Diet: regular diet Hospital Course Reason for admission: induction of labor Delivery: section Episiotomy: none Laceration: other (cervical) Other procedures: none complications: none Discharge diagnosis: IUP at term delivered baby: female Hospital course: Date of procedure: 01/01/19 Preop diagnosis: other (Intrauterine at 39-3/7 weeks, arrest of descent, cephalopelvic disproportion) Post-op diagnosis: same (with POP) Procedure: primary low transverse Surgeon: Yassine Fong Quantitated Blood Loss: 1,500 Was there an oncology physician assistant present: Yes [employer] Supervisor: Wilder Hercules ([id number]) Director Business Development: Josh Mcadams Anesthesia Type: Epidural section complications: none, other (intraoperative uterine atony with laceration into cervix) Disposition: L&D Recovery Room Specimens: Placenta - (s) A Infant Delivery Date: 01/01/19 Delivery Time: 18:41 Presentation: vertex Position: LOP Route of delivery: other ( section) Gender: Female Viability: Viable Pounds: 7 Ounces: 13 Gram Weight: 3.53 kg at 1 minute: 8 at 5 minutes: 9 Shoulder Dystocia: not encountered Specimens collected: cord blood Placenta: spontaneous Cord: 3 umbilical vessels - Narrative Narrative: Patient is a 20-year-old 1 para 0 at 39-3/7 weeks who presented to labor and delivery for an induction labor second term with history of elevated blood pressures. Patient was put in on the sixth were her induction was initiated. Patient progressed slowly but appropriately. This morning at approximately 7 AM the patient was complete patient's was allowed to push but was not making any progress they felt because of the epidural and allowed to labor down patient continued to have no sensation the entire day after approximately 11 hours of being complete patient had no maternal effort with her patient was completely exhausted. We did attempt a vacuum extraction we applied a vacuum twice with 1 pop off we had no descent of the head and this was abandoned and section was called. Procedure: Patient was taken the operating room where epidural anesthesia was found be adequate. She was placed in the dorsal supine position with leftward tilt and prepped and draped in usual fashion. Timeout was obtained. A Pfannenstiel incision was then made carried down through the underlying tissue until the fascia was identified. The fascia was nicked in the midline extended laterally with Severino scissors. The superior and inferior edges of the fascia were grasped and dissected off the rectus muscles and rectus muscles were in the midline. Parietal peritoneum was then identified tented up and entered sharply. This was extended superiorly and inferiorly with Metzenbaum scissors. The bladder blade was inserted noted this time the uterus seemed to be displaced to the left where we had to place the bladder blade more on the patient's right thigh. The vesicouterine peritoneum was then tented up and entered sharply extended laterally and bladder flap was created digitally. The lower uterine segment was then incised and the scalpel and the incision was extended laterally with bandage scissors. It was Noted immediately incision was at the level of the 's shoulders. I had difficulty getting the head disengaged I was finally able to disengage the head identifying the infant in occiput posterior presentation the infant was then brought up through the incision delivered cord was clamped and cut infant was handed off to waiting pediatric team. Cord blood was collected. Placenta was delivered spontaneously. Uterus was exterior since this time was noted immediately patient had a extension on the right side down into the cervix. It was noted that the extension extended all the way to the end of the cervix which what appeared to be in the vaginal vault. Using 0 Vicryl were able to then reapp roximate that cervical laceration and closed in a running locking stitch until we were at the level of the original penicillin incision. This incision was then closed using a 0 Vicryl in a running locking stitch by 2 layer closure. We did have good hemostasis I did close the peritoneum with a 2-0 Vicryl closing the underlying incision. The uterus was returned to the abdomen and gutters were cleaned of all clots and debris no active bleeding was noted. We did have to close the parietal peritoneum with a 2-0 Vicryl in a running stitch due to the fact patient omentum Protruding through the incision once this was closed we then closed the fascia with a #1 stratafix in a running stitch and then the subcutaneous tissue was closed using 0 chromic in a running stitch and the skin was closed using a 4-0 Vicryl in a subcuticular manner. All needles and sponge counts were correct 3 she did receive preoperative antibiotics. Patient will be continued on Keflex and Zithromax for 5 days daily. Time Attestation: Total time spent providing and/or coordinating discharge services: - VTE Reasons for not Prescribing Prophylaxis: Treatment not Indicated - Low risk for VTE Documentation of Mechanical Device: Intermittent pneumatic compression device Exam - Constitutional Vitals: Temp Pulse Resp BP Pulse Ox 98.3 F 93 14 127/84 98 01/03/19 10:20 01/03/19 10:20 01/03/19 10:20 01/03/19 10:20 01/03/19 10:20 General appearance IM: A&O X 3, pleasant, no acute distress, answers questions appropriately - Respiratory Respiratory exam: Present: CTAB. Absent: respiratory distress - Cardiovascular Cardiovascular exam IM: Present: RRR, +S1, +S2. Absent: irregular rhythm - GI/Abdominal GI/Abdominal exam IM: normal bowel sounds, soft Incision: intact, dressed (RINKU ) - Rectal Rectal exam: deferred - External exam: normal external exam Uterine Tone: Firm Uterus Position: At Umbilicus, Midline - Extremities Exam Extremities exam IM: Present: full ROM, normal capillary refill, normal inspection. Absent: calf tenderness - Neurological Exam Neurological exam: alert, normal gait, oriented X3
== END 2019-01-03 13:45 | disposition home or self-care (01) ==
LOC: 1NENULAB 12-31 06:11 → 1NENUOBS 01-01 22:22
PROVIDERS: ADMIT Obstetrics & Gynecology; ATTEND Obstetrics & Gynecology

== ENCOUNTER → 2021-12-03 15:20 | Observation (INO) | END | disposition home or self-care (01) | LOC: 1NENULAB | PROVIDERS: ADMIT Obstetrics & Gynecology; ATTEND Obstetrics & Gynecology ==

== ENCOUNTER 2021-12-29 07:58 | Inpatient (IN) ==
[2021-12-29] MEDS ORDERED: *HR* FentaNYL (PF) 100 MCG/2 ML VIAL ONE (08:20)
[2021-12-29] MEDS ORDERED: *HR* Morphine Sulfate/PF 10 MG/10 ML AMPUL ONE (08:20)
[2021-12-29] MEDS ORDERED: Acetaminophen IV 1,000 MG/100 ML BAG IVPB ONE (08:20)
[2021-12-29] MEDS ORDERED: Ketorolac 30 MG/ML VIAL ONE (08:20)
[2021-12-29] MEDS ORDERED: EPHEDrine 50 MG/ML VIAL ONE (08:20)
[2021-12-29] MEDS ORDERED: Ondansetron 4 MG/2 ML VIAL ONE (08:20)
[2021-12-29] MEDS ORDERED: Ondansetron 4 MG/2 ML VIAL IVP PRN ×2 (08:36→15:03)
[2021-12-29] MEDS ORDERED: *HR* HYDROmorphone PF 0.5 MG/0.5 ML SYRINGE IVP PRN (08:36)
[2021-12-29] MEDS ORDERED: Promethazine 6.25 MG in Water for inj. (sterile) 20 ML IVPB PRN (08:36)
[2021-12-29] MEDS ORDERED: OXYTOCIN/RINGERS LACTATE 10 UNIT/166.6 ML BAG IVC ONE (08:43)
[2021-12-29] MEDS ORDERED: Metoclopramide 10 MG/2 ML VIAL IVP ONE (08:43)
[2021-12-29] MEDS ORDERED: CeFAZolin Syr 3,000MG/30 ML 3,000 MG/30 ML SYRINGE IVPB ONE (08:43)
[2021-12-29] MEDS ORDERED: Famotidine 20 MG/2 ML VIAL IVP ONE (08:43)
[2021-12-29] MEDS ORDERED: Oxytocin 30 UNIT/503 ML BAG IVC SCH ×2 (08:45→15:03)
[2021-12-29] MEDS ORDERED: Ringers Solution, Lactated 1,000 ML IVC SCH ×2 (08:45→15:03)
[2021-12-29 09:28] LABS: Amphetamine Screen,Urine Negative ng/mL (Cutoff=1000); Barbiturate Screen,Urine Negative ng/mL (Cutoff=200); Basophils % 0.3 %; Benzodiazepines Screen,Urine Negative ng/mL (Cutoff=200); Cannabinoid Screen,Urine Negative ng/mL (Cutoff = 50); Cocaine Screen,Urine Negative ng/mL (Cutoff= 300); Eosinophils # 0.1 K/mcL (0.0-0.6); Eosinophils % 1.2 %; Hematocrit 33.6 % (35.3-44.9); Hemoglobin 11.2 g/dL (11.5-15.4); Immature Granulocytes % 0.6 % (0-4); Lymphocytes % 20.9 %; Mean Corpuscular HGB Conc 33.3 g/dL (31.6-35.5); Mean Platelet Volume 12.2 fL (9.4-12.4); Monocytes # 0.5 K/mcL (0.0-1.3); Monocytes % 5.6 %; Neutrophils # 6.9 K/mcL (1.6-8.9); Opiate Screen,Urine Negative ng/mL (Cutoff=300); Phencyclidine Screen,Urine Negative ng/mL (Cutoff=25); Platelet Count 208 K/mcL (140-400); Red Cell Distribution Width 14.4 % (11.5-14.5); Segmented Neutrophils % 71.4 %; White Blood Count 9.7 K/mcL (4.3-11.1)
[2021-12-29] MEDS ORDERED: *HR* Midazolam HCl 2 MG/2 ML VIAL ONE (11:18)
[2021-12-29] MEDS ORDERED: *HR* OxyCODONE Immed Rel 5 MG TABLET PO PRN (15:03)
[2021-12-29] MEDS ORDERED: Metoclopramide 10 MG/2 ML VIAL IVP PRN (15:03)
[2021-12-29] MEDS ORDERED: Rho Immune Globulin 1,500 UNIT SYRINGE IM ONE (15:03)
[2021-12-29] MEDS: Ibuprofen 600 MG TABLET PO SCH ×2 (15:43→20:58)
[2021-12-29] MEDS: Acetaminophen 325 MG TABLET PO SCH ×2 (15:44→20:58)
[2021-12-29] MEDS: Simethicone 80 MG TAB.CHEW PO PRN (20:59)
[2021-12-29] MEDS: *HR* Enoxaparin 60 MG/0.6 ML SYRINGE SQ SCH (23:38)
[2021-12-30] MEDS: Ibuprofen 600 MG TABLET PO SCH ×4 (05:25→22:52)
[2021-12-30] MEDS: Acetaminophen 325 MG TABLET PO SCH ×4 (05:25→22:51)
[2021-12-30] MEDS ORDERED: Rho Immune Globulin 1,500 UNIT SYRINGE IM ONE (10:19)
[2021-12-30] MEDS: *HR* Enoxaparin 60 MG/0.6 ML SYRINGE SQ SCH ×2 (11:02→20:19)
[2021-12-30] MEDS: Prenatal Vit/FA 1 EACH TABLET PO SCH (11:02)
[2021-12-30] MEDS: Simethicone 80 MG TAB.CHEW PO PRN (11:03)
[2021-12-30 20:44] VITALS: PULSE 86
[2021-12-31] MEDS: Ibuprofen 600 MG TABLET PO SCH ×2 (04:30→05:54)
[2021-12-31] MEDS: Acetaminophen 325 MG TABLET PO SCH ×2 (04:31→05:54)
[2021-12-31 06:31] VITALS: BP 118/79; TEMP 98.2; O2SAT 98
[2021-12-31] MEDS: *HR* Enoxaparin 60 MG/0.6 ML SYRINGE SQ SCH (07:47)
[2021-12-31] MEDS: Simethicone 80 MG TAB.CHEW PO PRN (07:47)
[2021-12-31] MEDS: Prenatal Vit/FA 1 EACH TABLET PO SCH (07:47)
[2021-12-31 09:05] LABS: Basophils % 0.3 %; Eosinophils # 0.1 K/mcL (0.0-0.6); Eosinophils % 1.4 %; Hematocrit 29.7 % (35.3-44.9); Immature Granulocytes % 0.9 % (0-4); Lymphocytes # 1.4 K/mcL (0.6-4.6); Mean Corpuscular HGB Conc 31.3 g/dL (31.6-35.5); Mean Corpuscular Hemoglobin 27.4 pg (28.0-33.3); Mean Corpuscular Volume 87.4 fL (83.0-100.0); Mean Platelet Volume 10.7 fL (9.4-12.4); Monocytes # 0.3 K/mcL (0.0-1.3); Monocytes % 3.6 %; Platelet Count 210 K/mcL (140-400); Red Cell Distribution Width 14.7 % (11.5-14.5); Segmented Neutrophils % 75.8 %; White Blood Count 7.9 K/mcL (4.3-11.1)
[2021-12-31 09:06] LABS: Hemoglobin 9.3 g/dL (11.5-15.4)
== END 2021-12-31 11:17 | disposition home or self-care (01) | DRG 788 ==
LOC: 1NENULAB 07:58 → 1NENUOBS 15:04
PROVIDERS: ADMIT Obstetrics & Gynecology; ATTEND Obstetrics & Gynecology